=== PATIENT | male | born 1960 | race Two or more races ===

== ENCOUNTER 2021-01-03 19:06 | Emergency (ER) | payer OTHER, MEDICARE ==
[~2021-01-03] VITALS: Ht 165.1 cm; Wt 77.7 kg
[2021-01-03 19:09] VITALS: BP 135/61
--- NOTE | 2021-01-03 19:32 | NUR ---
CC OF BILAT EYE BLEEDING. PT GOT SHOTS IN THE EYE AT EYE DOC THIS AM. PT HAS EYE "POCKETS" OF BLOOD IN LOWER PARTS OF EYES WITH SOME DRIBBLING. NOT CONSTANT BLEEDING. PT WITH DAUGHTER. PT MAKING JOKES WITH FAMILY AND RN.
--- NOTE | 2021-01-03 19:36 | NUR ---
PT ON BLOOD THINNERS.
== END 2021-01-03 19:47 | disposition home or self-care (01) ==
LOC: ED 19:36
DX: H11.33 Conjunctival hemorrhage, bilateral (principal); E11.9 Type 2 diabetes mellitus without complications
CPT/HCPCS: 99281

== ENCOUNTER 2021-05-23 13:32 | Emergency (ER) | payer OTHER, MEDICARE ==
[~2021-05-23] VITALS: Ht 165.1 cm; Wt 76.9 kg
[2021-05-23 13:56] VITALS: BP 101/56
[2021-05-23 15:06] LABS: BASOPHILS % (AUTO) 1 % (0-1); EOSINOPHILS % (AUTO) 0 % (1-7); LYMPHOCYTES % (AUTO) 8 % (22-44); MEAN CORPUSCULAR HEMOGLOBIN 29.4 pg (27.5-34.5); MEAN CORPUSCULAR HGB CONC 32.7 g/dL (33.2-36.2); MEAN PLATELET VOLUME 8.5 fL (7.4-10.4); MONOCYTES % (AUTO) 7 % (2-9); NEUTROPHILS % (AUTO) 85 % (42-75); PLATELET COUNT 205 x10^3/uL (130-400); RED BLOOD COUNT 4.05 x10^6/uL (4.38-5.82); RED CELL DISTRIBUTION WIDTH 13.8 % (9.4-14.8)
[2021-05-23 15:13] LABS: ALBUMIN 3.2 g/dL (3.4-5.0); ANION GAP 5 mmol/L (5-15); CALCIUM 7.9 mg/dL (8.5-10.1); CHLORIDE 100 mmol/L (98-107)
[2021-05-23 15:23] LABS: ALANINE AMINOTRANSFERASE 30 U/L (12-78); ALKALINE PHOSPHATASE 98 U/L (45-117); BILIRUBIN,TOTAL 0.8 mg/dL (0.2-1.0); CREATININE 7.41 mg/dL (0.7-1.3); TOTAL PROTEIN 7.9 g/dL (6.4-8.2)
[2021-05-23 19:08] LABS: MICROSCOPIC INDICATED
--- NOTE | 2021-05-23 20:41 | NUR ---
NA X1 WHEN CALLED FOR ROOM
--- NOTE | 2021-05-23 21:01 | NUR ---
NA X 2
--- NOTE | 2021-05-23 21:27 | NUR ---
NA X 3
== END 2021-05-23 21:28 | disposition left against medical advice (07) ==
LOC: ED 14:00
DX: R10.9 Unspecified abdominal pain (principal); R11.2 Nausea with vomiting, unspecified
CPT/HCPCS: 36415; 74018; 76770; 80053; 81001; 83690; 85025; 99285